=== PATIENT | male | born 1995 | race Caucasian/White ===

== ENCOUNTER 2019-01-23 16:31 | Emergency (ER) | payer BC ==
[~2019-01-23] VITALS: Ht 182.9 cm; Wt 113.6 kg
[2019-01-23 16:41] VITALS: Ht 182.9 cm; Wt 113.6 kg
[2019-01-23] MEDS ORDERED: IBUPROFEN800 MG PO (18:15)
[2019-01-23 18:33] VITALS: BP 124/61
== END 2019-01-23 18:33 | disposition home or self-care (01) ==
LOC: D.ER 16:31
DX: S83.91XA Sprain of unspecified site of right knee, initial encounter (principal); W22.8XXA Striking against or struck by other objects, initial encounter; Y93.89 Activity, other specified; Y92.89 Other specified places as the place of occurrence of the external cause; M25.461 Effusion, right knee